=== PATIENT | male | born 1995 | race Caucasian/White ===

== ENCOUNTER 2020-12-01 12:21 | Emergency (ER) | payer MEDICAID ==
[~2020-12-01] VITALS: Ht 180.3 cm; Wt 100.0 kg
[2020-12-01] MEDS ORDERED: ACETAMINOPHEN 325 MG TABLET PO ONE (13:15)
[2020-12-01] MEDS ORDERED: IBUPROFEN 600 MG TABLET PO ONE (13:15)
[2020-12-01 13:23] LABS: COVID AG,FIA SOURCE NASAL SWAB
[2020-12-01] MEDS ORDERED: AZITHROMYCIN 500 MG TABLET PO ONE (14:30)
[2020-12-01 15:11] VITALS: BP 127/82
== END 2020-12-01 15:18 | disposition home or self-care (01) ==
LOC: EMS 12:25
DX: J18.9 Pneumonia, unspecified organism (principal); F17.210 Nicotine dependence, cigarettes, uncomplicated; Z20.822 Contact with and (suspected) exposure to COVID-19
CPT/HCPCS: 71045; 87426; 99284; Q9967; U0003

== ENCOUNTER 2023-11-07 18:21 | Emergency (ER) | payer MEDICAID ==
[~2023-11-07] VITALS: Ht 175.3 cm; Wt 100.0 kg
[2023-11-07 18:25] VITALS: BP 132/91; PULSE 89; RESP 16; TEMP 98; O2SAT 98
[2023-11-07] MEDS: LIDOCAINE 1% 10 ML VIAL SQ ONE (19:53)
[2023-11-07] MEDS ORDERED: DOXY50 PO (20:00)
[2023-11-07] MEDS: DOXYCYCLINE HYCLATE 100 MG TABLET PO ONE (20:03)
== END 2023-11-07 20:21 | disposition home or self-care (01) ==
LOC: EMS 18:22
DX: K13.0 Diseases of lips (principal); F17.210 Nicotine dependence, cigarettes, uncomplicated; F12.90 Cannabis use, unspecified, uncomplicated
CPT/HCPCS: 99284; 10160; 99406; J3490